=== PATIENT | female | born 1995 ===

== ENCOUNTER 2020-07-04 15:47 | Emergency (ER) | payer SELFPAY ==
[2020-07-04 16:28] VITALS: BP 120/78
--- NOTE | 2020-07-04 16:35 | Emergency Department Report ---
Chief Complaint: Extremity Injury, Lower Stated Complaint: ANKLE/FALLEN ARCH IN FOOT Time Seen by Provider: 07/04/20 16:29 - HPI History of Present Illness: 25 yo AA pt presents with complaints of recurrent right ankle swelling x months. She states the swelling occurs at the end of the day after working and that it worsens when she stands on her feet for extended hours. She rates her current pain as a 5/10 in severity and denies trying any otc meds for her symptoms. Pain and swelling improve with elevation per pt. She denies any numbness/tingling/weakness in her foot/ankle, redness, fever/chills/sweats, or difficulty moving her limb. No prior medical hx or hx of cancer per pt. Hx and physical consistent with dependent edema. No red flag sxs or hx. Her vitals are normal, she is well appearing, and she is stable for d/c home. Recommend f/u with PCP outpatient, elevation, boo wrap, and nsaids prn. Strict return precautions were discussed in detail with who states understanding. - Exam Vital Signs: Vital Signs 07/04/20 16:27 Temperature 98.6 F Pulse Rate 65 Respiratory 20 Rate Blood Pressure 120/78 O2 Sat by Pulse 98 Oximetry MSE screening note: Focused history and physical exam performed. Due to findings the following was ordered: ED Disposition for MSE Clinical Impression: Dependent edema Disposition: DC-01 TO HOME OR SELFCARE Is pt being admited?: No Condition: Stable Instructions: Peripheral Edema Additional Instructions: Please purchase over the counter ibuprofen and take 800 mg three times daily as needed for pain for up to 7 days Referrals: [facility] [place] [Provider Group] - 3-5 Days ED Physical Exam - General Limitations: No Limitations General appearance: alert, in no apparent distress, obese - Head Head exam: Present: atraumatic, normocephalic - Eye Eye exam: Present: normal appearance - Respiratory Respiratory exam: Present: normal lung sounds bilaterally. Absent: respiratory distress - Cardiovascular Cardiovascular Exam: Present: regular rate, normal rhythm - Extremities Exam Extremities exam: Present: full ROM, other (mild left ankle swelling noted without erythema; normal ROM, pedal pulses, and sensation noted; Mild ttp noted to left medial ankle ) - Back Exam Back exam: Present: full ROM - Neurological Exam Neurological exam: Present: alert, oriented X3. Absent: motor sensory deficit - Psychiatric Psychiatric exam: Present: normal affect, normal mood - Skin Skin exam: Present: warm, dry, intact, normal color. Absent: rash ED Review of Systems ROS: Stated complaint: ANKLE/FALLEN ARCH IN FOOT Other details as noted in HPI Constitutional: denies: chills, fever Respiratory: denies: cough, shortness of breath Cardiovascular: denies: chest pain Musculoskeletal: joint swelling, arthralgia Skin: denies: rash, lesions, change in color Neurological: denies: weakness, numbness, paresthesias Hematological/Lymphatic: denies: swollen glands
== END 2020-07-04 17:16 | disposition home or self-care (01) ==
LOC: ED 15:47
DX: R60.9 Edema, unspecified (principal)
CPT/HCPCS: 99282